=== PATIENT | male | born 1965 | race Caucasian/White ===

== ENCOUNTER 2021-09-04 04:12 | Day surgery (SDC) | payer BC ==
[2021-09-03 11:27] VITALS: BMI 34.2
[~2021-09-04 04:12] MED LIST: DEXAMETHASONE SOD PHOSPHATE 10 MG/1 ML VIAL IVPUSH ONE; IOHEXOL 180 MG/1 ML ML IJ ONE
[2021-09-04] MEDS ORDERED: LIDOCAINE HCL/PF 1% SDV 5ML VIAL ONE (07:21)
[2021-09-04] MEDS ORDERED: DEXAMETHASONE SOD PHOSPHATE 10 MG/1 ML VIAL ONE (07:21)
[2021-09-04] MEDS ORDERED: LIDOCAINE HCL 1% PRESERVATIVE FREE - 30ML VIAL IJ ONE (07:53)
[2021-09-04] MEDS ORDERED: IOHEXOL 180 MG/1 ML ML IJ ONE (07:55)
[2021-09-04] MEDS ORDERED: DEXAMETHASONE SOD PHOSPHATE 10 MG/1 ML VIAL IVPUSH ONE (07:57)
[2021-09-04 08:23] VITALS: BP 134/71
[2021-09-04 08:34] VITALS: PULSE 72; TEMP 97.8
== END 2021-09-04 08:38 | disposition home or self-care (01) ==
LOC: JASU-SURG 04:12
PROVIDERS: ATTEND Pain Medicine Pain Medicine
PROC: 3E0R33Z Introduction of Anti-inflammatory into Spinal Canal, Percutaneous Approach (ICD-10-PCS; 2021-09-04)
PROC: 3E0R3BZ Introduction of Anesthetic Agent into Spinal Canal, Percutaneous Approach (ICD-10-PCS; principal; 2021-09-04 08:00)
DX: M48.07 Spinal stenosis, lumbosacral region (principal); M54.16 Radiculopathy, lumbar region
CPT/HCPCS: 76000-TC-FY; J1100

== ENCOUNTER 2021-10-16 04:03 | Day surgery (SDC) | payer BC ==
[2021-10-13 16:40] VITALS: BMI 34.2
[2021-10-16 06:50] VITALS: RESP 20
[2021-10-16] MEDS ORDERED: LIDOCAINE HCL/PF 1% SDV 5ML VIAL ONE ×2 (07:19→07:21)
[2021-10-16] MEDS ORDERED: DEXAMETHASONE SOD PHOSPHATE 10 MG/1 ML VIAL ONE (07:19)
[2021-10-16] MEDS ORDERED: SODIUM CHLORIDE 0.9% P/F 10 ML VIAL IJ ONE (07:45)
[2021-10-16] MEDS ORDERED: IOHEXOL 180 MG/1 ML ML IJ ONE (08:26)
[2021-10-16] MEDS ORDERED: LIDOCAINE 1% P/F 10 MG/ML VIAL INF ONE (08:26)
[2021-10-16] MEDS ORDERED: DEXAMETHASONE SOD PHOSPHATE 10 MG/1 ML VIAL IVPUSH ONE (08:27)
[2021-10-16 09:11] VITALS: BP 137/77; PULSE 78; TEMP 98.7
== END 2021-10-16 09:45 | disposition home or self-care (01) ==
LOC: JASU-SURG 04:03
PROVIDERS: ATTEND Pain Medicine Pain Medicine
PROC: 3E0R33Z Introduction of Anti-inflammatory into Spinal Canal, Percutaneous Approach (ICD-10-PCS; 2021-10-16)
PROC: 3E0R3BZ Introduction of Anesthetic Agent into Spinal Canal, Percutaneous Approach (ICD-10-PCS; principal; 2021-10-16 08:00)
DX: M54.16 Radiculopathy, lumbar region (principal)
CPT/HCPCS: 76000-TC-FY; J1100

== ENCOUNTER 2022-01-13 05:57 | Observation (INO) | payer BC ==
[2022-01-13] MEDS ORDERED: FAMOTIDINE 20 MG/50 ML IVPB 20 MG/50 ML MG IVPB ONE ×2 (07:09→07:36)
[2022-01-13] MEDS ORDERED: NITROGLYCERIN 2% OINTMENT - 1GM PACKET TD ONE ×2 (07:09→07:36)
[2022-01-13] MEDS ORDERED: ASPIRIN 325 MG TABLET PO ONE (07:59)
[2022-01-13] MEDS ORDERED: ASPIRIN 81 MG CHEWABLE TABLETS ONE (08:01)
[2022-01-13 08:21] LABS: BASO % 0.5 % (0-2.0); HEMATOCRIT 45.9 % (35.4-49); HEMOGLOBIN 15.9 GM/dL (11.7-16.9); LYMPH % 24.1 % (8-40); MCH 31.3 pg (25.7-33.7); MCHC 34.6 g/dl (32.0-35.9); MEAN CELL VOLUME 90.4 fl (80-96); MEAN PLT VOLUME 7.6 fl (7.5-11.1); MONO % 6.3 % (3.8-10.2); NEUT % 68.1 % (42.8-82.8); PLATELET COUNT 251 10^3/uL (134-434); RBC 5.08 M/mm3 (4.00-5.60); WHITE BLOOD COUNT 6.3 K/mm3 (4.0-10.0)
[2022-01-13 08:25] LABS: BLOOD UREA NITROGEN 10.1 mg/dL (7-18); CALCIUM 9.3 mg/dL (8.5-10.1)
[2022-01-13 08:26] LABS: ALBUMIN 4.1 g/dl (3.4-5.0)
[2022-01-13 08:28] LABS: CREATININE 0.8 mg/dL (0.55-1.3)
[2022-01-13 08:30] LABS: BILIRUBIN,TOTAL 0.8 mg/dL (0.2-1); TOT PROT 7.2 g/dl (6.4-8.2)
[2022-01-13] MEDS ORDERED: ACETAMINOPHEN 1000 MG/100 ML BAG IVPB ONE (09:55)
[2022-01-13] MEDS ORDERED: ACETAMINOPHEN INJECTION 100 ML IVPB ONE (09:55)
[2022-01-13] MEDS ORDERED: REGADENOSON 0.4 MG/5 ML PRE-FILLED SYRINGE IVPUSH ONE ×2 (12:01→12:15)
[2022-01-13] MEDS ORDERED: ENOXAPARIN NA (PORCINE) 40 MG/0.4 ML DISP.SYRIN SQ ONE (15:04)
[2022-01-13] MEDS: ENOXAPARIN NA (PORCINE) 40 MG/0.4 ML DISP.SYRIN SQ SCH (15:13)
[2022-01-13 15:52] VITALS: RESP 18; BMI 36.1
[2022-01-13 17:18] LABS: COCAINE, UR NEGATIVE (NEGATIVE); OPIATES, URI NEGATIVE (NEGATIVE); PHENCYCLIDINE,URINE NEGATIVE (NEGATIVE); URINE BARBITURATES NEGATIVE (NEGATIVE); URINE BENZODIAZEPINES NEGATIVE (NEGATIVE)
[2022-01-13 17:22] LABS: METHADONE, UR NEGATIVE (NEGATIVE); URINE AMPHETAMINES NEGATIVE (NEGATIVE)
[2022-01-13 18:37] LABS: MAGNESIUM 2.4 mg/dL (1.8-2.4)
[2022-01-13 18:40] LABS: PHOSPHOROUS 3.6 mg/dL (2.5-4.9)
[2022-01-13 18:44] LABS: N-TERMINAL BNP 32.5 pg/ml (5-125)
[2022-01-13] MEDS: ATORVASTATIN CA 80 MG TABLET (FP) PO SCH (22:00)
[2022-01-14 08:15] LABS: BASO % 0.5 % (0-2.0); EOS % 0.9 % (0-4.5); LYMPH % 24.8 % (8-40); MCH 31.9 pg (25.7-33.7); MCHC 35.8 g/dl (32.0-35.9); MEAN CELL VOLUME 89.2 fl (80-96); MEAN PLT VOLUME 7.6 fl (7.5-11.1); MONO % 7.2 % (3.8-10.2); NEUT % 66.6 % (42.8-82.8); PLATELET COUNT 230 10^3/uL (134-434); RBC 4.71 M/mm3 (4.00-5.60); RDW 12.4 % (11.9-15.9); WHITE BLOOD COUNT 6.9 K/mm3 (4.0-10.0)
[2022-01-14 08:36] LABS: ALBUMIN 3.8 g/dl (3.4-5.0); CALCIUM 8.9 mg/dL (8.5-10.1)
[2022-01-14 08:39] LABS: CREATININE 0.7 mg/dL (0.55-1.3)
[2022-01-14 08:41] LABS: TOT PROT 6.8 g/dl (6.4-8.2)
[2022-01-14] MEDS: ENOXAPARIN NA (PORCINE) 40 MG/0.4 ML DISP.SYRIN SQ SCH (09:47)
[2022-01-14] MEDS ORDERED: amLODIPine BESYLATE 5 MG TABLET (FP) PO SCH (10:00)
[2022-01-14] MEDS ORDERED: ASPIRIN 81 MG CHEWABLE TABLETS PO SCH (10:00)
[2022-01-14] MEDS ORDERED: LISINOPRIL 5 MG TABLET PO SCH (15:00)
[2022-01-14] MEDS: ATORVASTATIN CA 80 MG TABLET (FP) PO SCH (21:05)
[2022-01-14 22:31] VITALS: BP 123/76; PULSE 67; TEMP 98
[2022-01-15] MEDS ORDERED: amLODIPine BESYLATE 5 MG TABLET (FP) PO SCH (10:00)
== END 2022-01-14 23:29 | disposition short-term general hospital (02) ==
LOC: JER 05:57 → JERBED 14:10 → INTOOBSV 14:10 → J4W 15:33
PROVIDERS: ATTEND Internal Medicine
PROC: 3E033NZ Introduction of Analgesics, Hypnotics, Sedatives into Peripheral Vein, Percutaneous Approach (ICD-10-PCS; principal; 2022-01-13)
PROC: 3E023GC Introduction of Other Therapeutic Substance into Muscle, Percutaneous Approach (ICD-10-PCS; 2022-01-13)
PROC: 3E033GC Introduction of Other Therapeutic Substance into Peripheral Vein, Percutaneous Approach (ICD-10-PCS; 2022-01-13)
DX: R07.89 Other chest pain (principal); R94.8 Abnormal results of function studies of other organs and systems; R01.1 Cardiac murmur, unspecified; I44.7 Left bundle-branch block, unspecified; E78.5 Hyperlipidemia, unspecified; M48.00 Spinal stenosis, site unspecified; I10 Essential (primary) hypertension; E66.8 Other obesity; Z68.36 Body mass index [BMI] 36.0-36.9, adult; Z29.8 Encounter for other specified prophylactic measures; Z91.041 Radiographic dye allergy status
CPT/HCPCS: 36415; 71045-TC-FY; 78452-TC; 80053; 80061; 80307; 82550; 82962; 83036; 83690; 83735; 83880; 84100; 84439; 84443; 84484; 85025; 85379; 93005; 93010; 93017; 93306-TC; 99285-25; A9502; C9803-CS; G0378; J2785; U0003; U0005

== ENCOUNTER 2022-04-07 04:40 | Day surgery (SDC) | payer BC ==
[2022-04-02 13:46] VITALS: BMI 35.9
[2022-04-07 11:05] VITALS: TEMP 98.3
[2022-04-07 11:11] VITALS: RESP 18
[2022-04-07 11:55] VITALS: BP 128/73; PULSE 69
== END 2022-04-07 11:55 | disposition home or self-care (01) ==
LOC: JASU-ENDO 04:40
PROVIDERS: ATTEND Internal Medicine Gastroenterology
PROC: 0DJ08ZZ Inspection of Upper Intestinal Tract, Via Natural or Artificial Opening Endoscopic (ICD-10-PCS; principal; 2022-04-07 10:00)
DX: K21.9 Gastro-esophageal reflux disease without esophagitis (principal); K29.70 Gastritis, unspecified, without bleeding; K29.80 Duodenitis without bleeding

== ENCOUNTER 2023-07-20 05:46 | Emergency (ER) | payer BC ==
[2023-07-20 05:50] VITALS: BMI 33.4
[2023-07-20 07:09] LABS: BASO % 1.1 % (0-2.0); EOS % 3.4 % (0-4.5); HEMOGLOBIN 14.3 GM/dL (11.7-16.9); LYMPH % 21.8 % (8-40); MCHC 33.3 g/dl (32.0-35.9); MEAN CELL VOLUME 90.2 fl (80-96); MEAN PLT VOLUME 7.2 fl (7.5-11.1); MONO % 6.4 % (3.8-10.2); NEUT % 67.3 % (42.8-82.8); PLATELET COUNT 222 10^3/uL (134-434); RBC 4.76 M/mm3 (4.00-5.60); RDW 13.3 % (11.9-15.9); WHITE BLOOD COUNT 6.9 K/mm3 (4.0-10.0)
[2023-07-20 07:32] LABS: POTASSIUM 4.4 mmol/L (3.5-5.1)
[2023-07-20 07:34] LABS: CALCIUM 9.2 mg/dL (8.5-10.1)
[2023-07-20 07:35] LABS: BLOOD UREA NITROGEN 12.1 mg/dL (7-18)
[2023-07-20 07:38] LABS: CREATININE 0.8 mg/dL (0.55-1.3)
[2023-07-20] MEDS ORDERED: FAMOTIDINE 20 MG TABLET ONE (07:38)
[2023-07-20] MEDS ORDERED: ASPIRIN 81 MG CHEWABLE TABLETS ONE (07:39)
[2023-07-20] MEDS ORDERED: MAG HYDROX/AL HYDROX/SIMETH 30 ML UNIT-DOSE CUP ONE (07:39)
[2023-07-20 07:40] LABS: BILIRUBIN,TOTAL 0.6 mg/dL (0.2-1); TOT PROT 6.8 g/dl (6.4-8.2)
[2023-07-20] MEDS: MAG HYDROX/AL HYDROX/SIMETH 30 ML UNIT-DOSE CUP PO ONE (07:43)
[2023-07-20] MEDS: ASPIRIN 81 MG CHEWABLE TABLETS PO ONE (07:43)
[2023-07-20] MEDS: FAMOTIDINE 20 MG TABLET PO ONE (07:43)
[2023-07-20 10:34] VITALS: BP 125/76; PULSE 80; RESP 18; TEMP 98
== END 2023-07-20 11:40 | disposition home or self-care (01) ==
LOC: JER 05:46
DX: R07.89 Other chest pain (principal); M54.6 Pain in thoracic spine; R51.9 Headache, unspecified; M54.2 Cervicalgia
CPT/HCPCS: 36415; 70450-TC; 71045-TC-FY; 80053; 83690; 84484; 85025; 93005; 93010; 99285-25

== ENCOUNTER 2023-08-30 04:05 | Day surgery (SDC) | payer BC ==
[2023-08-25 12:38] VITALS: BMI 33.3
[2023-08-30 09:33] VITALS: TEMP 98.6
[2023-08-30 10:12] VITALS: BP 119/66; PULSE 68; RESP 18
== END 2023-08-30 10:25 | disposition home or self-care (01) ==
LOC: JASU-ENDO 04:05
PROVIDERS: ATTEND Internal Medicine Gastroenterology
PROC: 0DJD8ZZ Inspection of Lower Intestinal Tract, Via Natural or Artificial Opening Endoscopic (ICD-10-PCS; principal; 2023-08-30 09:00)
DX: Z12.11 Encounter for screening for malignant neoplasm of colon (principal); K64.8 Other hemorrhoids; K57.30 Diverticulosis of large intestine without perforation or abscess without bleeding; Z86.010 Personal history of colon polyps; I10 Essential (primary) hypertension